=== PATIENT | male | born 1990 | race Caucasian/White ===

== ENCOUNTER 2018-02-04 16:54 | Emergency (ER) | payer SELFPAY ==
[~2018-02-04] VITALS: Ht 185.4 cm; Wt 88.5 kg
[2018-02-04 16:55] VITALS: BP_SYST 137
--- NOTE | 2018-02-04 16:57 | NUR ---
BROUGHT IN BY [facility], PLACED IN BED #2 AND TRIAGED. REPORT GIVEN TO IMELDA
--- NOTE | 2018-02-04 17:01 | NUR ---
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 Patient reports of "heart racing" while at work, decided to walk to the fire station, and requested to be transported to this hospital. Patient appears mildly anxious, but cooperative. Smiles appropriately during triage. Patient denies any SI/HI. Patient states that he has a known history of Anxiety, but "not on meds." Patient states that his chest pressure has resolved, and denies any pain at this time.
--- NOTE | 2018-02-04 17:14 | NUR ---
MARCOS CULLEN, PROVIDER AT THE BEDSIDE FOR PATIENT EVALUATION.
--- NOTE | 2018-02-04 17:40 | NUR ---
PROVIDER AT THE BEDSIDE AGAIN FOR PATIENT RE-EVALUATION. AWAITING FOR ADDITIONAL ORDERS AT THIS TIME. PATIENT REMAINS CALM AND COOPERATIVE.
--- NOTE | 2018-02-04 18:14 | NUR ---
PATIENT HAS BEEN CLEARED FOR DC. PATIENT DC AWAKE AND ALERT, AMBULATES WITH STEADY GAIT. PATIENT'S VITALS REMAIN WNL. ADVISED TO FOLLOW-UP WITH HIS PMD IN 2-3 DAYS.
== END 2018-02-04 18:15 | disposition home or self-care (01) ==
LOC: SED 16:54
DX: F41.9 Anxiety disorder, unspecified (principal)
CPT/HCPCS: 99283